=== PATIENT | female | born 1990 | race Caucasian/White ===

== ENCOUNTER 2018-02-17 13:35 | Emergency (ER) | payer OTHER ==
[~2018-02-17] VITALS: Ht 157.5 cm; Wt 105.7 kg
[2018-02-17 13:47] VITALS: BP 129/84; Ht 157.5 cm; Wt 105.7 kg
== END 2018-02-17 16:54 | disposition home or self-care (01) ==
LOC: ED 13:35
DX: H10.89 Other conjunctivitis (principal); Z88.2 Allergy status to sulfonamides